=== PATIENT | female | born 1995 | race African-American/Black ===

== ENCOUNTER 2020-06-05 00:15 | Emergency (ER) | payer BC ==
[~2020-06-05] VITALS: Ht 170.2 cm; Wt 131.5 kg
[2020-06-05] MEDS ORDERED: ORPHENADRINE C100 MG PO (03:36)
[2020-06-05] MEDS ORDERED: KETO10TA2 PO (03:36)
== END 2020-06-05 03:38 | disposition home or self-care (01) ==
LOC: ER 00:15
DX: M54.2 Cervicalgia (principal); M62.838 Other muscle spasm